=== PATIENT | male | born 1990 | race Caucasian/White ===

== ENCOUNTER 2018-08-24 09:03 | Inpatient (IN) | payer SELFPAY ==
[~2018-08-24] VITALS: Ht 170.2 cm; Wt 83.9 kg
[2018-08-24] MEDS ORDERED: HALOPERIDOL LACTATE 5 MG/ML VIAL IM ONE (09:30)
[2018-08-24] MEDS ORDERED: DiphenhydrAMINE HCL 50 MG/ML VIAL IM ONE (09:30)
[2018-08-24] MEDS ORDERED: LORazepam 2 MG/ML VIAL IM ONE (09:30)
[2018-08-24 10:36] LABS: BASOPHILS % (AUTO) 0.9 % (0.0-2.0); EOSINOPHILS % (AUTO) 0.9 % (1.0-6.0); HEMATOCRIT 37.8 % (41-53); HEMOGLOBIN 12.6 g/dL (13.5-17.5); LYMPHOCYTES # (AUTO) 1.7 K/uL (1.0-4.8); LYMPHOCYTES % (AUTO) 12.6 % (22.0-44.0); MEAN CORPUSCULAR HEMOGLOBIN 30.5 pg (26.0-34.0); MEAN CORPUSCULAR HGB CONC 33.3 G/dL (31.0-37.0); MEAN CORPUSCULAR VOLUME 92 fL (80-100); MONOCYTES # (AUTO) 1.4 K/uL (0.1-1.0); MONOCYTES % (AUTO) 10.2 % (2.0-9.0); NEUTROPHILS # (AUTO) 10.2 K/uL (1.8-7.7); NEUTROPHILS % (AUTO) 75.4 % (40.0-70.0); PLATELET COUNT (AUTO) 377 K/uL (150-450); RED BLOOD CELL COUNT(AUTO) 4.12 MIL/uL (4.50-5.90); RED CELL DISTRIBUTION WIDTH 13.9 % (11.5-14.5)
[2018-08-24 10:44] LABS: ANION GAP 12 mmol/L (8-16); CALCIUM, TOTAL 8.9 mg/dL (8.8-10.5); CARBON DIOXIDE 24 mmol/L (22-29); CHLORIDE 100 mmol/L (98-107); CREATININE 0.69 mg/dL (0.60-1.30); GLOMERULAR FILTR. RATE CALC > 60 mL/min (>60); GLUCOSE,RANDOM 100 mg/dL (70-110); POTASSIUM 3.8 mmol/L (3.5-5.1); SODIUM SERUM 136 mmol/L (136-145); UREA NITROGEN, BLOOD 12 mg/dL (7-18)
[2018-08-24 10:49] LABS: ALANINE AMINOTRANSFERASE 85 U/L (12-78); ALKALINE PHOSPHATASE 76 U/L (46-116); ASPARTATE AMINOTRANSFERASE 26 U/L (15-37); BILIRUBIN,TOTAL 1.2 mg/dL (0.1-1.0); TOTAL PROTEIN, SERUM 7.5 g/dL (6.4-8.2)
[2018-08-24] MEDS ORDERED: HALOPERIDOL 5 MG TABLET PO PRN (11:15)
[2018-08-24 11:50] LABS: CHOL/HDL RATIO 2.8 (4.2-7.3); CHOLESTEROL 115 mg/dL (131-200); HDL CHOLESTEROL 41 mg/dL (40-60); LDL CHOL (CALC.) 69 mg/dL (0-130); TRIGLYCERIDES 24 mg/dL (15-150)
[2018-08-24 14:02] VITALS: BP 104/61
[2018-08-24] MEDS ORDERED: CloNIDine HCL 0.1 MG TABLET PO PRN (14:15)
[2018-08-24] MEDS ORDERED: PETROLATUM,WHITE 71 GM JELLY TP PRN (14:15)
[2018-08-24] MEDS ORDERED: MAGNESIUM HYDROXIDE SUSPENSION 30 ML UDCUP PO PRN (14:15)
[2018-08-24] MEDS ORDERED: BACITRACIN 28.4 GM OINTMENT TP PRN (14:15)
[2018-08-24] MEDS ORDERED: ACETAMINOPHEN 325 MG TABLET PO PRN (14:15)
[2018-08-24] MEDS ORDERED: LOPERAMIDE HCL 2 MG CAPSULE PO PRN (14:15)
[2018-08-24] MEDS ORDERED: ONDANSETRON HCL 4 MG TABLET PO PRN (14:15)
[2018-08-24] MEDS ORDERED: ALBUTEROL SULFATE HFA 90 MCG/PUFF 8 GM INHALER IH PRN (14:15)
[2018-08-24] MEDS ORDERED: BENZOCAINE/MENTHOL LOZENGE MM PRN (14:15)
[2018-08-24] MEDS ORDERED: MAG HYDROX/AL HYDROX/SIMETH ES 30 ML SUSPENSION UDCUP PO PRN (14:15)
[2018-08-24] MEDS ORDERED: IBUPROFEN 600 MG TABLET PO PRN (14:15)
[2018-08-24] MEDS ORDERED: PNEUMOCOCCAL VACCINE POLYVALENT 0.5 ML VIAL [PPSV23] IM ONE (14:45)
[2018-08-24 16:12] VITALS: BP 122/83
[2018-08-24] MEDS: LORazepam 2 MG TABLET PO PRN (19:59)
[2018-08-25 05:08] VITALS: BP 116/72
[2018-08-25 08:00] VITALS: BP 125/75
[2018-08-25] MEDS: NICOTINE 21 MG/24 HOUR PATCH TD SCH (09:05)
[2018-08-25] MEDS: LORazepam 2 MG TABLET PO PRN ×3 (09:05→20:15)
[2018-08-25] MEDS: DOCUSATE SODIUM 100 MG CAPSULE PO SCH (09:05)
[2018-08-25] MEDS: OMEPRAZOLE 20 MG CAPSULE PO SCH (09:05)
[2018-08-25 16:02] VITALS: BP 129/78
[2018-08-25] MEDS: RisperiDONE 1 MG TABLET PO SCH (16:55)
[2018-08-25] MEDS: ZOLPIDEM TARTRATE 10 MG TABLET PO PRN (20:15)
[2018-08-26 05:43] VITALS: BP 111/69
[2018-08-26] MEDS: LORazepam 2 MG TABLET PO PRN ×3 (05:43→16:41)
[2018-08-26] MEDS: DOCUSATE SODIUM 100 MG CAPSULE PO SCH (08:19)
[2018-08-26] MEDS: OMEPRAZOLE 20 MG CAPSULE PO SCH (08:19)
[2018-08-26] MEDS: NICOTINE 21 MG/24 HOUR PATCH TD SCH (08:19)
[2018-08-26] MEDS: RisperiDONE 1 MG TABLET PO SCH (08:22)
[2018-08-26 08:37] VITALS: BP 121/64
[2018-08-26 16:31] VITALS: BP 108/62
[2018-08-26] MEDS: OLANZapine 5 MG TABLET PO SCH (16:41)
[2018-08-26] MEDS: ZOLPIDEM TARTRATE 10 MG TABLET PO PRN (20:30)
[2018-08-27 04:00] VITALS: BP 112/63
[2018-08-27] MEDS: LORazepam 2 MG TABLET PO PRN ×2 (05:59→08:45)
[2018-08-27 08:05] VITALS: BP 136/84
[2018-08-27] MEDS: DOCUSATE SODIUM 100 MG CAPSULE PO SCH (08:45)
[2018-08-27] MEDS: OLANZapine 5 MG TABLET PO SCH (08:45)
[2018-08-27] MEDS: OMEPRAZOLE 20 MG CAPSULE PO SCH (08:45)
[2018-08-27 09:38] LABS: BASOPHILS % (AUTO) 0.5 % (0.0-2.0); EOSINOPHILS % (AUTO) 2.5 % (1.0-6.0); HEMOGLOBIN 12.6 g/dL (13.5-17.5); LYMPHOCYTES # (AUTO) 1.6 K/uL (1.0-4.8); MEAN CORPUSCULAR HEMOGLOBIN 30.4 pg (26.0-34.0); MEAN CORPUSCULAR HGB CONC 33.1 G/dL (31.0-37.0); MEAN CORPUSCULAR VOLUME 92 fL (80-100); MONOCYTES # (AUTO) 0.4 K/uL (0.1-1.0); MONOCYTES % (AUTO) 8.3 % (2.0-9.0); NEUTROPHILS # (AUTO) 2.5 K/uL (1.8-7.7); NEUTROPHILS % (AUTO) 53.7 % (40.0-70.0); PLATELET COUNT (AUTO) 368 K/uL (150-450); RED BLOOD CELL COUNT(AUTO) 4.15 MIL/uL (4.50-5.90); RED CELL DISTRIBUTION WIDTH 13.8 % (11.5-14.5)
[2018-08-27] MEDS ORDERED: OLAN5TAB2 PO (11:24)
== END 2018-08-27 15:05 | disposition home or self-care (01) | DRG 885 ==
LOC: EMS 09:04 → EDBD 12:24 → B3A 12:24
PROVIDERS: ADMIT Psychiatry & Neurology Child & Adolescent Psychiatry; ATTEND Psychiatry & Neurology Child & Adolescent Psychiatry
DX: F25.0 Schizoaffective disorder, bipolar type (principal); F12.90 Cannabis use, unspecified, uncomplicated; F15.10 Other stimulant abuse, uncomplicated; D72.829 Elevated white blood cell count, unspecified; G47.00 Insomnia, unspecified; F41.9 Anxiety disorder, unspecified; Z72.89 Other problems related to lifestyle; Z71.41 Alcohol abuse counseling and surveillance of alcoholic; Z71.51 Drug abuse counseling and surveillance of drug abuser
CPT/HCPCS: 80074; 90686; 96372; 99291; G0480; J1200; J1630; J2060